=== PATIENT | female | born 2000 | race Caucasian/White ===

== ENCOUNTER 2018-10-29 13:20 | Inpatient (IN) | payer MEDICAID, SELFPAY ==
[2018-10-29] MEDS: Lactated Ringers 1,000 ML 50 ML IV ×3 (13:45→19:32)
[2018-10-29 14:36] LABS: Absolute Lymphocyte Count 1.82 X10^3/uL (0.83-4.51); Absolute Neutrophil Count 13.3 X10^3/uL (2.0-7.7); Basophil# 0.04 X10^3/uL; Basophil% 0.2 % (0-1); Eosinophil# 0.02 X10^3/uL; Eosinophils% 0.1 % (0-5); Hematocrit 36.5 % (37-47); Hemoglobin 12.2 g/dL (12.0-15.0); Lymphocyte # 1.82 X10^3/ul (4.0); Lymphocyte % 11.2 % (19-41); Mean Corp Hgb Conc 33.4 g/dL (32-36); Mean Corpuscular Volume 92.6 fL (81-99); Mean Platelet Vol. 11.1 fl (6.2-12.0); Monocyte# 1.04 X10^3/uL; Monocyte% 6.4 % (0-10); NRBC Flagged by Analyzer 0 % (0-5); Neutrophil # 13.29 X10^3/uL (2.7-7.7); Neutrophil % 81.7 % (47-70); Platelet Count 350 K/mm3 (150-450); RBC Distribution Width CV 13.8 % (11.6-14.6); RBC Distribution Width SD 47.2 fl (35.1-43.9); Red Blood Count 3.94 M/mm3 (4.2-5.4); White Blood Count 16.3 K/mm3 (4.4-11.0)
[2018-10-29] MEDS: fentaNYL-bupivacaine (epidural) 100 ML BAG EPIDURAL (16:38)
--- NOTE | 2018-10-29 17:21 | PCM.HP.OB ---
History Date of Admission: 10/29/18 Final PRIYANKA: 11/02/18 Gestational age: 39 Weeks and 3 Days History of this : This is a 18 year-old, G [], P [], at 39 weeks gestational age. Allergies No Known Allergies Allergy (Verified 10/29/18 14:16) Home Medications: Home Medications Ferrous Sulfate 325 mg PO DAILY 10/29/18 Vit No.130/Iron/Folic [ Tablet] 1 ea PO DAILY 10/29/18 Smoking Status: Never smoker Heart Tracin with moderate variability, accels TOCO Analysis: Q 2-3 minutes History Past Pregnancies: Past Pregnancies Delivery Date Name GA/Weeks Outcome Route Weight Gender Labor Length Anesthesia Delivery Location Provider FOB Labs: See [facility] H[facility]P Physical Exam General: Alert, Oriented x3 Abdomen: Soft, Non Tender, Non-Distended, Gravid Neurological: Cranial nerves II-XII grossly intact PATIENT SERVICE TECHNICIAN PST: Normal external genitalia Estimated gestational size: Appropriate for gestational size Presentation: Cephalic Cervix Dilation (cm): 9 - AROM clear fluid Station: 0 Effacement (%): 100 Assessment/Plan This is a 18 year-old, G [], P [], at 39 weeks gestational age. Admit to L&D Expectant management GBS negative Pain - epidural EFW less than 4500g, patient with adequate pelvis Routine care
[2018-10-29] MEDS: Ondansetron 4 MG/2 ML Vial IV (19:32)
[2018-10-30] VITALS (23 sets, daily range): BP systolic 113–135; BP diastolic 62–88; PULSE 94–107; RESP 16–20; TEMP 36.6–37.3; O2SAT 94–100
[2018-10-30] MEDS: Acetaminophen 325 MG Tablet PO (00:17)
[2018-10-30] MEDS: Lactated Ringers 1,000 ML 50 ML IV (00:17)
[2018-10-30] MEDS: Ondansetron 4 MG/2 ML Vial IV (00:53)
--- NOTE | 2018-10-30 01:03 | PCM.OPRPT ---
Report of Operation Date of Procedure: 10/30/18 Pre-Operative Diagnosis: (1) Failure to descend Post-Operative Diagnosis: (1) Failure to descend (2) Occiput posterior Surgery/Procedure Performed:: Low transverse section Description of Surgical Findings:: Normal maternal uterus & adnexa forest pathology associate professor: Romeo Pugh Type of Anesthesia:: Epidural Specimen's removed: Placenta Estimated Blood Loss (mL): 700ml Fluids Replaced: 1200ml Delivery Classification: CAROL Final PRIYANKA: 11/02/18 Gestational age: 39 Weeks and 4 Days Indications: Patient pushed for 4.5 hours and no descent past +1 station. Indications for : Failure of Descent Description of Procedure: Patient taken to OR where epidural anesthesia was dosed. She was prepped and draped in normal sterile fashion in a dorsal lithotomy position with a leftward tilt. After ensuring adequacy of anesthesia the Pfannensteil skin incision was made and carried through to the underlying fascia with a bovie. The fascia was incised in the midline and carried laterally with the Alfaro scissors. The rectus muscles were in the midline and the peritoneum was entered bluntly. The bladder flap was dissected down carefully with the Metzenbaum scissors and blunt dissection. The uterus was incised in a transverse fashion and then incision extended with cephalocaudad traction. The fetus was vertex and the head was brought to the incision with help of vaginal elevation by the RN. With the head in the flexed position and good fundal pressure the head easily delivered. Gentle traction was placed on head to allow delivery of anterior & posterior shoulders. No excess traction placed on head. The body delivered easily. The 3VC cord was clamped and cut and the handed off to the waiting RN. The placenta was delivered w/ gentle traction and fundal massage and the uterus was exteriorized and cleared of all clots and debris. The uterine incision was closed with 1 vicryl suture in a running locked fashion. The bovie was used to further obtain further hemostasis of the uterine incision. A second imbricating layer of monocryl was placed. The uterus was returned to the peritoneal cavity. The pelvis was irrigated & then cleared of all clots and debris. The uterine incision was reexamined and found to be hemostatic. Some della was placed over the uterine incision & bladder flap due to the denuded areas. The parietal peritoneum was reapproximated with running vicryl suture. The fascia was closed with looped PDS suture in a running standard fashion. The subcutaneous tissue was examined & any bleeding bovie cauterized. The subcutaneous tissue was reapproximated with plain gut suture. Lidocaine 1% was injected into the skin superficially for pain control with skin closure. The skin was closed in a subcuticular fashion by the HOT MILL OBSERVER with me present in the labor and delivery suite. I performed the remainder of the procedure w/ assistance. Amniotic Membrane Rupture Type: Artificial Amniotic Fluid Description: Clear Placenta Disposition: [facility] Drain: Hummel to straight drain Cord Vessel Description: 3 Vessels Esitmated Blood Loss (ml): 700ml Infant Gender: Female (1 minute): 8 (5 minute): 9 Delayed cord clamping: Yes Pre-op Antibiotic Given: Ancef 1 gram IV x1
[2018-10-30] MEDS: CHLORHEXIDINE GLUC 2% CLOTH 1 EACH TOWELETTE TOPICAL (01:05)
[2018-10-30] MEDS: Sodium Citrate/Citric Acid 30 ML UDC PO (01:11)
[2018-10-30] MEDS: Cefazolin 2 GM in 0.9% Normal Saline 100 ML IV (01:20)
[2018-10-30] MEDS: Oxytocin 30 units/NS 500 ml 30 UNITS/500 ML IV.SOLN 167 UNITS IV (01:44)
[2018-10-30] MEDS: Lactated Ringers 1,000 ML 100 ML IV ×2 (03:28→14:35)
--- NOTE | 2018-10-30 07:14 | PCM.PN.OB ---
Subjective: Pain controlled. - Physical Exam General: Alert, Oriented x3 Abdomen: Soft, Non Tender, Non-Distended - ff mid & below umb; inc - bandage c/d/i Extremities: No Calf Tenderness Neurological: Cranial nerves II-XII grossly intact Vital Signs Temp Pulse Resp BP Pulse Ox 98.3 F 94 18 121/71 H 97 10/30/18 06:49 10/30/18 06:49 10/30/18 06:49 10/30/18 06:49 10/30/18 06:49 Oxygen Delivery Method Room Air Weight: 169 lb 9.6 oz Body Mass Index (BMI) 30.0 Intake and Output for Last 24 Hours 10/28/18 10/29/18 10/30/18 23:59 23:59 23:59 Intake Total 4211 / 4211 Output Total 400 / 400 Balance 3811 / 3811 Laboratory Tests Past 24 Hrs 10/29/18 10/29/18 10/29/18 13:45 13:45 13:45 WBC 16.3 H RBC 3.94 L Hgb 12.2 Hct 36.5 L MCV 92.6 MCH 31.0 MCHC 33.4 RDW Std Deviation 47.2 H RDW Coeff of Jenae 13.8 Plt Count 350 MPV 11.1 Immature Gran % (Auto) 0.400 Neut % (Auto) 81.7 H Lymph % (Auto) 11.2 L [place] % (Auto) 6.4 Eos % (Auto) 0.1 Baso % (Auto) 0.2 Absolute Neuts (auto) 13.3 H Absolute Lymphs (auto) 1.82 Absolute Nucleated RBC 0.00 Nucleated RBC % 0 Blood Type A NEGATIVE Antibody Screen TNP NEGATIVE Screen Baby's Blood Type Baby's ERNESTO 10/30/18 05:45 WBC RBC Hgb Hct MCV MCH MCHC RDW Std Deviation RDW Coeff of Jenae Plt Count MPV Immature Gran % (Auto) Neut % (Auto) Lymph % (Auto) [place] % (Auto) Eos % (Auto) Baso % (Auto) Absolute Neuts (auto) Absolute Lymphs (auto) Absolute Nucleated RBC Nucleated RBC % Blood Type Antibody Screen Screen NEGATIVE Baby's Blood Type A POSITIVE Baby's ERNESTO NEGATIVE Medical Necessity - Tobacco Use Smoking Status: Never smoker Assessment/Plan PPD#0 Routine care - matta, adequate UOP GI - ADAT Heme - HDS, check cbc tomorrow AM
[2018-10-30] MEDS: Ketorolac 30 MG/ML Syringe IV ×3 (09:45→20:48)
[2018-10-30] MEDS: 0.9% Saline Lock 10 ML Syringe IV (14:54)
[2018-10-31] MEDS: Lactated Ringers 1,000 ML 100 ML IV (00:12)
[2018-10-31 00:20] VITALS: BP 127/71; PULSE 108; RESP 18; TEMP 36.4; O2SAT 95
[2018-10-31 02:08] VITALS: PULSE 96; RESP 18; O2SAT 94
[2018-10-31] MEDS: Ketorolac 30 MG/ML Syringe IV ×4 (02:09→20:59)
[2018-10-31 04:45] VITALS: BP 118/75; PULSE 92; RESP 18; TEMP 36.4; O2SAT 95
[2018-10-31 05:27] LABS: Hemoglobin 10.9 g/dL (12.0-15.0); Mean Corpuscular Hgb 31.7 pg (27.0-32.0); Mean Corpuscular Volume 95.9 fL (81-99); Mean Platelet Vol. 10.3 fl (6.2-12.0); Platelet Count 281 K/mm3 (150-450); RBC Distribution Width CV 14.6 % (11.6-14.6); RBC Distribution Width SD 50.8 fl (35.1-43.9); Red Blood Count 3.44 M/mm3 (4.2-5.4); White Blood Count 17.3 K/mm3 (4.4-11.0)
[2018-10-31] MEDS: oxyCODONE 5 MG Tablet PO ×2 (05:37→10:19)
[2018-10-31 08:00] VITALS: BP 121/76; PULSE 89; RESP 18; TEMP 37.3; O2SAT 97
[2018-10-31] MEDS: 0.9% Saline Lock 10 ML Syringe IV ×3 (10:20→20:59)
[2018-10-31] MEDS: Senna/Docusate Sodium 1 Tablet PO (10:20)
--- NOTE | 2018-10-31 13:06 | PCM.PN.OB ---
Subjective: Doing well per patient and nursing staff. Ambulating and taking PO without difficulty. Pain controlled. without difficulty. Had previously wanted Nexplanon insertion but now unsure. Planning D/C home tomorrow. Declines increased vaginal bleeding or clots. - Physical Exam General: Alert, Oriented x3, Cooperative HEENT: Atraumatic, Normocephalic Neck: Trachea Midline Lungs: Clear to auscultation, No rhonchi, No wheeze Cardiovascular: Regular rate, Regular Rhythm, No murmurs Abdomen: Bowel Sounds Present, Soft, - - Fundus firm 2 below U. Dressing dry and intact Extremities: No edema Psych/Mental Status: Normal Affect, Appropriate Vital Signs Temp Pulse Resp BP Pulse Ox 99.2 F H 89 18 121/76 H 97 10/31/18 08:00 10/31/18 08:00 10/31/18 08:00 10/31/18 08:00 10/31/18 08:00 Oxygen Delivery Method Room Air Weight: 169 lb 9.6 oz Body Mass Index (BMI) 30.0 Intake and Output for Last 24 Hours 10/29/18 10/30/18 10/31/18 23:59 23:59 23:59 Intake Total 6467 / 6467 594 / 594 Output Total 1575 / 1575 1100 / 1100 Balance 4892 / 4892 -506 / -506 Laboratory Tests Past 24 Hrs 10/31/18 04:50 WBC 17.3 H RBC 3.44 L Hgb 10.9 L Hct 33.0 L MCV 95.9 MCH 31.7 MCHC 33.0 RDW Std Deviation 50.8 H RDW Coeff of Jenae 14.6 Plt Count 281 MPV 10.3 Medical Necessity - Tobacco Use Smoking Status: Never smoker Assessment/Plan A:POD #1 Primary Section Blood loss anemia P: 1) instructions given. Planning D/C home tomorrow. 2) Hgb decreased, to start ferrous sulfate 325mg PO BID. Asymptomatic 3) Reviewed with patient control options and Nexplanon. Patient declines Nexplanon insertion at this time but may want this after 6 wk 4) Planning D/C home tomorrow.
[2018-10-31 14:00] VITALS: BP 111/71; PULSE 97; RESP 18; TEMP 37.2
--- NOTE | 2018-10-31 17:00 | CASEMGMT ---
Social Work Referral Date: 10/31/18 Date of Assessment: 10/31/18 Reason for Consult: No communication observed between Mother of Baby (MOB) and Father of baby (FOB) answers all questions. Informant: Nursing staff, chart. Personal Status Mentation: MOB A&Ox3 Present during assessment: MOB, infant, and FOB. FOB sleeping on couch during complete assessment. Hx : 1 Hx Para: 0 Gender: Female Name: Francheska Song (1min): 8 (5min): 9 Care: Adequate Alleged father: Deangelo Song Alleged father involved: Yes Length of Relationship with alleged father of baby: 1 year Number of Children in the home: This is first infant for MOB and second for FOB. Custody Comments: FOB has a 3 year old that does not share maternity with this infant. FOB does not have custody of 3 year old, but has shared parenting. MOB and FOB plan to return to home with this . was unplanned but accepted. Living Arrangements: MOB, FOB and now this live in own apartment. Education: Associates Degree in art. Employment: Unemployed at this time. Reporting to want to get a job using associates degree after adjusting to . Family Dynamics/Relationships: MOB reporting positive relationship with FOB. MOB denies any emotion, physical, or sexual abuse. Supports: MOB identifies FOB and family as main support. . Transportation: MOB denies any transportation issues. Substance Abuse Hx and Current Pattern of Use MOB denies any substance abuse. MOB reporting that FOB does smoke tobacco but does so outside of the home. MOB reporting to understand the importance of FOB smoking away from infant and infant risk of SIDS if exposed to second hand smoke. Mental Health Hx and Current Status MOB reporting no mental health history. MOB and this web content & social media manager engaged in conversation about depression signs and symptoms and plan of action if MOB was to begin having symptoms. MOB aware to contact primary care physician. Items/Skills List for Infants Care Supplies: MOB stating to have all needed supplies (crib, clothing, diapers, etc.) Bonding With : MOB reporting to feel a connection with . MOB plans to breast feed and stating that breast feeding is going well. Observed Maternal/Paternal Child interaction: MOB holding during assessment. MOB supporting and responding to appropriately. MOB gazing at often during assessment. Emotional Assessment: MOB presenting with a positive affect. MOB engaged in conversation with this web content & social media manager and responding appropriately to questions. Comment: MOB with no concerns on returning to home. MOB reporting to have MOB's mother and other family members for support for the first few weeks at home. FOB plans to return to work on Friday. Intervention: Provided MOB with list of [facility] resources, Help Me Grow, safe sleeping, depression. Plan: MOB, FOB and to discharge to home. Era Wilson MSW, [place]
[2018-10-31 20:30] VITALS: BP 124/80; PULSE 100; RESP 18; TEMP 37.6; O2SAT 95
[2018-10-31] MEDS: Ferrous Sulfate 325 MG Tablet PO (20:59)
[2018-11-01 02:00] VITALS: BP 119/81; PULSE 73; RESP 18; TEMP 36.7; O2SAT 96
[2018-11-01] MEDS: Ketorolac 30 MG/ML Syringe IV (03:09)
[2018-11-01] MEDS: 0.9% Saline Lock 10 ML Syringe IV (03:09)
[2018-11-01 08:15] VITALS: BP 112/73; PULSE 101; RESP 16; TEMP 37; O2SAT 96
--- NOTE | 2018-11-01 08:37 | PCM.PN.OB ---
Subjective: Seen at bedside doing well. Patient reports good pain control. Patient voiding without any difficulty. Denies nausea vomiting. Lochia is mild. Breast-feeding. - Physical Exam General: Alert, Oriented x3 Abdomen: Soft, Non-Distended, - - Fundus firm. Dressing dry and intact. Extremities: No Calf Tenderness Vital Signs Temp Pulse Resp BP Pulse Ox 98.6 F 101 H 16 112/73 96 11/01/18 08:15 11/01/18 08:15 11/01/18 08:15 11/01/18 08:15 11/01/18 08:15 Oxygen Delivery Method Room Air Weight: 76.929 kg Body Mass Index (BMI) 30.0 Intake and Output for Last 24 Hours 10/30/18 10/31/18 11/01/18 23:59 23:59 23:59 Intake Total 6467 / 6467 594 / 594 Output Total 1575 / 1575 1999 Balance 4892 / 4892 -1406 / -1406 Medical Necessity - Tobacco Use Smoking Status: Never smoker Assessment/Plan Postop day #2, doing well Routine care Pain management Ambulation DC home today anticipated
--- NOTE | 2018-11-01 08:41 | DCINST_ITS ---
Discharge Diet: No Restrictions Discharge Activity: Return to Normal Activity, May Not Drive - for 2 weeks, May not drive while taking narcotic pain medications., May Shower, May Take a Tub Bath - in 7 days. May resume sexual activity in: 4-6 weeks Lifting Restrictions: 20 pounds Additional Activity Instructions:: Nothing in the vagina for 4-6 weeks. You may return to work/school in 6 weeks. Call your doctor if your incision/area has: Continuous Slow Oozing, Sudden Increased Bleeding, Increased Pain/ Swelling, Increased Redness, Foul Smelling Discharge Call your doctor if you observe: Fever of 101 or Higher, Using more than one pad per hour - for 2 hours Suture Line Care: Avoid Pulling/Pushing, Avoid Pinching/Bending Cleanse incision/area with: Keep Dressing Clean & Dry Additional Instructions: If you experience any of the following, contact your healthcare provider. * Bleeding that soaks a pad every hour for 2 hours * Fever 100.4 or higher * Unrelieved incision or abdominal pain * Swelling, redness, discharge or bleeding from your incision or episiotomy site * Your incision begins to separate * Problems urinating (including inability to urinate or burning while urinating). * Visual changes * Severe headache * Flu-like symptoms * Pain or redness in one of both of your breasts * Pain, warmth, tenderness or swelling in your legs, especially the calf area * Frequent nausea and vomiting * Symptoms of depression or anxiety If you experience any of the following, call 911 or go to the nearest Emergency Room. * Chest pain * Problems breathing * Seizure activity * Partial or complete paralysis of a body part, slurred speech, weakness or drooping of the face, or a sudden inability to walk or hold your balance Allergies/Adverse Reactions: Allergies No Known Allergies Allergy (Verified 10/29/18 14:16) Medications to take at Discharge Ferrous Sulfate 325 mg PO DAILY 10/29/18 Vit No.130/Iron/Folic [ Tablet] 1 ea PO DAILY 10/29/18 Docusate Sodium [Colace] 100 mg PO BID #20 cap 11/01/18 Ibuprofen [Motrin] 600 mg PO Q6H PRN PRN #30 tab 11/01/18 Oxycodone HCl/Acetaminophen [Percocet 5/325] 1 tablet PO Q6H PRN PRN 7 Days #20 tablet 11/01/18 SimETHICONE [Mylicon] 80 mg PO [facility]CHS PRN #30 tab 11/01/18 The following prescriptions were given: Docusate Sodium [Colace] 100 mg PO BID #20 cap Transmission Status: Pending to [id number] Ibuprofen [Motrin] 600 mg PO Q6H PRN PRN #30 tab PRN Reason: Mild Pain (-06/21) Transmission Status: Pending to [id number] SimETHICONE [Mylicon] 80 mg PO [facility]S PRN #30 tab PRN Reason: Indigestion/stomach pain Transmission Status: Pending to [id number] Oxycodone HCl/Acetaminophen [Percocet 5/325] 1 tablet PO Q6H PRN PRN 7 Days #20 tablet PRN Reason: pain Transmission Status: Received by [id number] Follow-Up: Call to make an appointment with your doctor for an incision check in 1-2 weeks. You will also need a 6 week post- follow up appointment. Test results from this visit will be discussed in further detail at your follow- up appointment, if applicable. Please Follow Up With: Rose Lugo MD - Call to make an appointment for an incision check in 1-2 [phone] When: You will need a post- check in 6 weeks. Primary Care Physician: Care Physician,No Primary [Primary Care Provider] -
--- NOTE | 2018-11-01 08:42 | PCM.DC.BLA ---
Discharge Summary Date of Admission: 10/29/18 Date of Discharge: 11/01/18 Summary: She was admitted to [facility] for labor she progressed to fully dilated and was pushing with arrest of descent. Patient underwent a primary low transverse section for arrest of descent by Dr.Karmon Huang. She had an uneventful postoperative course. Her hemoglobin hematocrit was stable. Patient was discharged home on postoperative day 2 on November 01, 2018 - Physical Exam Vital Signs Temp Pulse Resp BP Pulse Ox 98.6 F 101 H 16 112/73 96 11/01/18 08:15 11/01/18 08:15 11/01/18 08:15 11/01/18 08:15 11/01/18 08:15 Oxygen Delivery Method Room Air Weight: 76.929 kg Body Mass Index (BMI) 30.0 Intake and Output for Last 24 Hours 10/30/18 10/31/18 11/01/18 23:59 23:59 23:59 Intake Total 6467 / 6467 594 / 594 Output Total 1575 / 1575 1999 / 1999 Balance 4892 / 4892 -1406 / -1406
[2018-11-01] MEDS: Ferrous Sulfate 325 MG Tablet PO (12:24)
[2018-11-01] MEDS: Acetaminophen 500 MG Tablet 1000 MG PO (12:30)
[2018-11-01 14:31] VITALS: BP 112/78; PULSE 97; RESP 16; TEMP 36.5; O2SAT 98
[2018-11-01] MEDS: Ibuprofen 600 MG Tablet PO (14:47)
== END 2018-11-01 15:50 | disposition home or self-care (01) | DRG 540 ==
PROVIDERS: Admitting Provider Obstetrics & Gynecology; Referring Provider Obstetrics & Gynecology; Visit Provider Obstetrics & Gynecology
DX: O62.1 Secondary uterine inertia (principal); O64.8XX0 Obstructed labor due to other malposition and malpresentation, not applicable or unspecified; O64.0XX0 Obstructed labor due to incomplete rotation of fetal head, not applicable or unspecified; Z3A.39 39 weeks gestation of pregnancy; Z37.0 Single live birth
CPT/HCPCS: 59025; 59050; 85025; 85027; 85461; 86850; 86900; 90384; 99218; J7120; A4216; G0378; J2405; J2790

== ENCOUNTER → 2021-04-11 | Outpatient (CLI) | payer OTHER, SELFPAY | END | disposition home or self-care (01) | LOC: LABSPEC 11:51 | PROVIDERS: Referring Provider Physician Assistant; Visit Provider Physician Assistant | DX: Z11.52 Encounter for screening for COVID-19 (principal) | CPT/HCPCS: 87635; U0005; U0003 ==